=== PATIENT | female | born 1995 | race Caucasian/White ===

== ENCOUNTER → 2023-12-01 08:25 | Outpatient (BNVA) | payer MEDICAID, SELFPAY | PROVIDERS: Family Provider Family Medicine; PCP Family Medicine; Visit Provider Nurse Practitioner Women's Health | DX: N92.6 Irregular menstruation, unspecified (principal); Z34.90 Encounter for supervision of normal pregnancy, unspecified, unspecified trimester | CPT/HCPCS: 81025; 84702 ==

== ENCOUNTER → 2023-12-15 13:08 | Outpatient (BNVA) | payer MEDICAID, SELFPAY | PROVIDERS: Visit Provider Nurse Practitioner Women's Health | DX: Z36.87 Encounter for antenatal screening for uncertain dates (principal) | CPT/HCPCS: 76801 ==

== ENCOUNTER → 2024-01-05 07:43 | Outpatient (BNVA) | payer MEDICAID, SELFPAY | PROVIDERS: Visit Provider Nurse Practitioner Women's Health | DX: Z34.90 Encounter for supervision of normal pregnancy, unspecified, unspecified trimester (principal) | CPT/HCPCS: 80307; 84315; 84443; 85025; 86592; 86762; 86803; 86850; 86900; 87086; 87340; 87491; 87591; 87806 ==

== ENCOUNTER 2024-02-03 18:11 | Outpatient (CLI) | payer MEDICAID, SELFPAY ==
[2024-02-03 18:23] LABS: Total Volume, Urine 1300 mL
[2024-02-03 18:47] LABS: Urine Total Protein 7.1 mg/dL (0-150); Urine Total Protein 24 Hour 92.3 mg/24hr (0-150)
== END 2024-02-03 18:12 | disposition home or self-care (01) ==
PROVIDERS: Visit Provider Obstetrics & Gynecology
DX: O16.9 Unspecified maternal hypertension, unspecified trimester (principal)
CPT/HCPCS: 84156

== ENCOUNTER → 2024-02-09 08:10 | Outpatient (BNVA) | payer BC, MEDICAID, SELFPAY | PROVIDERS: Visit Provider Nurse Practitioner Women's Health | DX: Z34.90 Encounter for supervision of normal pregnancy, unspecified, unspecified trimester (principal); Z01.419 Encounter for gynecological examination (general) (routine) without abnormal findings | CPT/HCPCS: 84315; 87624 ==

== ENCOUNTER 2024-02-29 23:07 | Emergency (ER) | payer BC, MEDICAID, SELFPAY ==
[2024-02-29 23:10] VITALS: BP 124/84; PULSE 80; RESP 15; TEMP 36.8; O2SAT 98; BMI 34.0
[2024-02-29 23:20] VITALS: BP 124/84; PULSE 70; O2SAT 98
--- NOTE | 2024-02-29 23:25 | USR_ITS ---
PROCEDURE INFORMATION: Exam: US , Limited Exam date and time: 02/29/2024 11:54 PM Age: 29 years old Clinical indication: complicated by abdominal or pelvic pain; Generalized abdominal pain; Second trimester (14 weeks 0 days to 27 weeks 6 days); Gestational age or lmp: 18w 5d; ; Prior surgery; Surgery date: 6+ months; Surgery type: Csect x 2; Patient HX: Bilateral pelvic pain x 4 hours, no vaginal bleeding. ; Additional info: Pain, LABS AND CLINICAL REPORTS: Last menstrual period start date: 10/19/2023 Gestational age (Established): 18 w 6 d Estimated due date (Established): 07/26/2024 TECHNIQUE: Imaging protocol: Real-time ultrasound of the maternal uterus with image documentation. Exam focused on the clinical indication. COMPARISON: US OB <= 14 weeks fetus [id number] 12/15/2023 1:13 PM FINDINGS: Gestation: Single intrauterine gestation heart rate: 144 bpm presentation and position: Cephalic Placenta: Posterior grade 0 placenta without previa. Amniotic fluid (Qualitative): Amniotic fluid volume is normal. Amniotic fluid index: JOSH is 13.31 cm. ANATOMY: midline falx: midline falx is normal. cerebellum: cerebellum is normal. lateral ventricles: lateral ventricles are normal. cisterna magna: cisterna magna is normal. choroid plexus: choroid plexus is normal. face: upper lip and nose are normal. situs: situs is normal. heart four-chamber view, heart size and position: heart four-chamber view, size, and position are normal. kidneys: kidneys are normal. stomach: stomach is normal. urinary bladder: bladder is normal. spine: No visualized abnormalities of spine. Umbilical cord and insertion: umbilical cord insertion site into the abdomen is normal. 3-vessel umbilical cord lower limbs: legs and feet: No visualized abnormalities of legs/feet. upper limbs: arms and hands: No visualized abnormalities of arms/hands. BIOMETRY: Gestational age (AUA): 18 w 5 d Estimated due date (AUA): 07/27/2024 Estimated weight: 249.21 g. EFW by AC, BPD, FL, HC, [place] 1985 Biparietal diameter (BPD): 4.14 cm. EGA (BPD) is 18 w 4 d. 36.6 % percentile Head circumference (HC): 15.96 cm. EGA (HC) is 18 w 6 d. 39.4 % percentile Abdominal circumference (AC): 12.68 cm. EGA (AC) is 18 w 2 d. 26.7 % percentile Femur length (FL): 2.92 cm. EGA (FL) is 19 w 0 d. 48.3 % percentile HC/AC: 1.26. (Normal range: 1.09 - 1.26) FL/HC: 18.3. (Normal range: 16.01 - 18.21) FL/BPD: 70.53 FL/AC: 23.03 MATERNAL: Cervix: Cervical length measures 3.8 cm. US/US OB >= 14 weeks fetus [id number] IMPRESSION: Single intrauterine with documented heart rate.
--- NOTE | 2024-02-29 23:29 | W.ED.GENADLT ---
HPI - General Adult General: Chief complaint: General Medical Stated complaint: HTN Time Seen by Provider: 02/29/24 23:15 History of Present Illness: 29-year-old female who is approximately 19 weeks who presents the emergency room with reports of hypertension and abdominal pain. EMS reported her blood pressure was 135/103. They gave some labetalol here. She is already on nifedipine. She had reported some headache earlier that is not as bad now. She also reports some low intermittent crampy pelvic pain that radiates up both sides. No vaginal bleeding. No vaginal discharge. No altered mental status. No focal motor deficits. No chest pain. No shortness of breath. Review of Systems Narrative: Constitutional symptoms: Negative except as documented in HPI. Skin symptoms: Negative except as documented in HPI. Eye symptoms: Negative except as documented in HPI. ENMT symptoms: Negative except as documented in HPI. Respiratory symptoms: Negative except as documented in HPI. Cardiovascular symptoms: Negative except as documented in HPI. Gastrointestinal symptoms: Negative except as documented in HPI. Genitourinary symptoms: Negative except as documented in HPI. Musculoskeletal symptoms: Negative except as documented in HPI. Neurologic symptoms: Negative except as documented in HPI. Psychiatric symptoms: Negative except as documented in HPI. Endocrine symptoms: Negative except as documented in HPI. [facility] ED PFSH: Medical History (Updated 03/01/24 @ 01:09 by Staci Oquendo MD) History of gestational hypertension Surgical History (Updated 02/12/24 @ 15:10 by Gene Leija MD) History of x2 Family History Mother Heart disease Hypertension Denies family history of Colon cancer Ovarian cancer Prostate cancer Diabetes Hypercholesteremia Breast cancer Uterine cancer Thyroid disease Stroke Physical Exam Narrative: EXAM NARRATIVE: General: Alert, no acute distress. Skin: Warm, dry. Head: Normocephalic, atraumatic. Neck: Supple, trachea midline. Eye: Extraocular movements are intact. Ears, nose, mouth and throat: mucosa moist. Cardiovascular: Regular, Normal peripheral perfusion. Respiratory: Lungs are clear to auscultation, respirations are non-labored, breath sounds are equal, Symmetrical chest wall expansion. Gastrointestinal: Gravid, no focal tenderness, soft Musculoskeletal: Normal ROM, no deformity. Neurological: Alert and oriented, No focal neurological deficit observed. Psychiatric: Cooperative, appropriate mood & affect. Course Vital Signs: Vital signs: Vital Signs Temperature 98.2 F 02/29/24 23:10 Pulse Rate 68 03/01/24 00:38 Respiratory Rate 15 02/29/24 23:10 Blood Pressure 138/73 03/01/24 00:38 Pulse Oximetry 99 03/01/24 00:38 Oxygen Delivery Me thod Room Air 03/01/24 00:38 MDM - General Adult Medical Decision Making Medical decision making: Differential diagnosis including but not limited to and based on the above HPI, review of systems and physical exam: In this patient with weakness, headache, abdominal pain basic lab work was ordered a urine because she has some pelvic pain. Also an ultrasound secondary to pelvic pain. Rule out any abnormalities with the . Orders placed to evaluate differential diagnosis based on the above differential, HPI and physical exam Lab Review: Laboratory results were reviewed and interpreted by myself the emergency room physician. Lab work was fairly unremarkable for a patient. Some leukocytosis with a white count of 11. This is expected. Bicarb is 20 which is also expected in . Urine had some ketones which indicate that she is dehydrated somewhat. Also had to plus bacteria and some white so I am going to treat her for urinary tract infection Obstetric ultrasound: Normal ultrasound. Normal-appearing fetus. Vigorous movement. Heart rate was 144. Approximately 18 weeks 6 days. This was reviewed and interpreted by myself the emergency room physician. I also reviewed the radiology report. I reviewed the patient's medical record. Reexamination: Patient remained stable. No increased work of breathing. No altered mental status. Assessment and plan: UTI Dehydration -Fluids, Rocephin and Tylenol - Discharged home - Discussed findings and plan with patient. Answered any questions. - All laboratory values were reviewed and interpreted personally by myself, the ER physician - All imaging was reviewed and interpreted personally by myself, the ER physician. - Evaluation and treatment of this problem were appropriate in the emergency setting Lab Data 02/29/24 23:44 02/29/24 23:44 Laboratory Results WBC 11.32 10^3/uL (3.29-11.43) 02/29/24 23:44 RBC 4.30 10^6/uL (3.85-5.65) 02/29/24 23:44 Hgb 13.10 g/dL (11.27-16.99) 02/29/24 23:44 Hct 37.3 % (36-47) 02/29/24 23:44 MCV 86.7 fl (85-98) 02/29/24 23:44 MCH 30.5 pg (27-33) 02/29/24 23:44 MCHC 35.1 g/dL (30-55) 02/29/24 23:44 RDW 13.1 % (12.1-15.1) 02/29/24 23:44 Plt Count 205 10^3/cmm (157-399) 02/29/24 23:44 MPV 11.1 fL (7.4-10.4) H 02/29/24 23:44 Neut % (Auto) 71.9 % 02/29/24 23:44 Lymph % (Auto) 21.9 % 02/29/24 23:44 [place] % (Auto) 4.7 % 02/29/24 23:44 Eos % (Auto) 0.8 % 02/29/24 23:44 Baso % (Auto) 0.3 % 02/29/24 23:44 Neut # (Auto) 8.14 10^3/uL (1.8-7.7) H 02/29/24 23:44 Lymph # (Auto) 2.5 10^3/uL (0.8-4.8) 02/29/24 23:44 [place] # (Auto) 0.5 10^3/uL (0.2-0.9) 02/29/24 23:44 Eos # (Auto) 0.1 10^3/uL (0.0-0.8) 02/29/24 23:44 Baso # (Auto) 0.0 10^3/uL (0.0-0.1) 02/29/24 23:44 Nucleated RBC % (auto) 0 % 02/29/24 23:44 Nucleated RBCs # 0.0 /100WBC 02/29/24 23:44 Sodium 138 mmol/L (136-145) 02/29/24 23:44 Potassium 3.3 mmol/L (3.5-5.1) L 02/29/24 23:44 Chloride 105 mmol/L (98-107) 02/29/24 23:44 Carbon Dioxide 20 mmol/L (22-29) L 02/29/24 23:44 Anion Gap 16.3 (5-19) 02/29/24 23:44 BUN 8 mg/dL (6-20) 02/29/24 23:44 Creatinine 0.5 mg/dL (0.5-0.9) 02/29/24 23:44 GFR Calculation 146.9 mL/min (90-130) H 02/29/24 23:44 Glucose 89 mg/dL (65-115) 02/29/24 23:44 Calculated Osmolality 284 mOsm/kg (285-295) L 02/29/24 23:44 Lactic Acid 1.1 mmol/L (0.5-2.2) 02/29/24 23:44 Calcium 9.3 mg/dL (8.5-10.5) 02/29/24 23:44 Total Bilirubin 0.8 mg/dL (0.15-1.2) 02/29/24 23:44 AST 17 U/L (0-32) 02/29/24 23:44 ALT 23 U/L (0-33) 02/29/24 23:44 Alkaline Phosphatase 74 U/L (35-105) 02/29/24 23:44 C-Reactive Protein 21.9 mg/L (0.0-4.9) H 02/29/24 23:44 Total Protein 7.4 g/dL (6.6-8.7) 02/29/24 23:44 Albumin 3.9 g/dL (3.5-5.2) 02/29/24 23:44 Globulin 3.5 g/dL (1.3-4.6) 02/29/24 23:44 Urine Color Yellow (Yellow) 02/29/24 23:37 Urine Appearance Clear (CLEAR) 02/29/24 23:37 Urine pH 5 (5-7) 02/29/24 23:37 Ur Specific [place] 1.025 (1.005-1.030) 02/29/24 23:37 Urine Protein Trace (Negative) 02/29/24 23:37 Urine Glucose (UA) Norm (Normal) 02/29/24 23:37 Urine Ketones 3+ (Negative) H 02/29/24 23:37 Urine Blood Neg (Negative) 02/29/24 23:37 Urine Nitrate Negative (Negative) 02/29/24 23:37 Urine Bilirubin 1+ (Negative) H 02/29/24 23:37 Urine Urobilinogen 4+ mg/dL (Negative) H 02/29/24 23:37 Ur Leukocyte Esterase Negative (Negative) 02/29/24 23:37 Urine RBC 0-4 /hpf (0-2) H 02/29/24 23:37 Urine WBC 0-4 /hpf (0-5) H 02/29/24 23:37 Ur Squamous Epith Cells 0-4 /hpf (0-5) H 02/29/24 23:37 Amorphous Sediment Not Reportable 02/29/24 23:37 Urine Bacteria 2+ /hpf (NONE) H 02/29/24 23:37 Urine Mucus Trace /hpf 02/29/24 23:37 All radiology interpretation(s) finalized by discharge Discharge Plan Discharge Patient Disposition: Home Clinical Impression: Urinary tract infection, Dehydration Qualifiers: Weeks of gestation: 11 weeks Qualified Code(s): Z3A.11 - 11 weeks gestation of Condition: Stable Prescriptions: New cefdinir 300 mg capsule 300 mg PO BID 5 Days Qty: 10 0RF No Action prenat.vits,saige,hnf-ozgn-pdvpn Tablet PO nifedipine [Procardia XL] 30 mg tablet extended release 24hr 30 mg PO DAILY Qty: 30 1RF Discharge Orders: Discharge ED (Routine); Ordered 03/01/24 Ordered By: Staci Oquendo Discharge Diet: Usual diet Discharge Activity: Increase activity as tolerated Patient Instructions: Urinary Tract Infection in (ED) Activity Restrictions/Additional Instructions: Thank you for choosing [facility] for your healthcare needs today. Please realize this is an emergency room and that we are providing you with a medical screening exam and this may not be complete and all inclusive of all the testing and or work up that you may need to determine your ailment or severity of your illness. You have been screened and evaluated and felt safe for discharge. Health conditions do change or evolve sometimes and as such it is important that you follow up with your Primary Doctor to be re checked, 3-5 days is a general good time frame for follow up. You are always welcome to return to the ED for re assessment if your symptoms are worsening or you have new concerns Coding Level of Care Code ED Weight Analyst for Erin Farmer
[2024-02-29 23:49] VITALS: BP 116/73
[2024-02-29] MEDS: sodium chloride 0.9% 1,000 ML 999 ML IV (23:53)
[2024-02-29 23:57] LABS: Basophils % 0.3 %; Eosinophils # 0.1 10^3/uL (0.0-0.8); Eosinophils % 0.8 %; Hematocrit 37.3 % (36-47); Lymphocytes # 2.5 10^3/uL (0.8-4.8); Lymphocytes % 21.9 %; Mean Corpuscular HGB Conc 35.1 g/dL (30-55); Mean Corpuscular Hemoglobin 30.5 pg (27-33); Mean Corpuscular Volume 86.7 fl (85-98); Mean Platelet Volume 11.1 fL (7.4-10.4); Monocytes # 0.5 10^3/uL (0.2-0.9); Monocytes % 4.7 %; Neutrophils # 8.14 10^3/uL (1.8-7.7); Neutrophils % 71.9 %; Nucleated Red Blood Cells % 0 %; Platelet Count 205 10^3/cmm (157-399); Red Cell Distribution Width 13.1 % (12.1-15.1); White Blood Count 11.32 10^3/uL (3.29-11.43)
[2024-03-01 00:01] LABS: Urine Appearance Clear (CLEAR); Urine Color Yellow (Yellow)
[2024-03-01 00:02] LABS: Bacteria Urine 2+ /hpf; Bilirubin Urine 1+ (Negative); Blood Urine Neg (Negative); Glucose Urine UA Norm (Normal); Ketones Urine 3+ (Negative); Leukocyte Esterase Urine Negative (Negative); Mucus Urine TRACE /hpf; Nitrate Urine Negative (Negative); Protein Urine Trace (Negative); RBC Urine 0-4 /hpf (0-2); Specific Gravity, Urine 1.025 (1.005-1.030); Squamous Epithelial Cell Urine 0-4 /hpf (0-5); Urobilinogen Urine 4+ mg/dL (Negative); WBC Urine 0-4 /hpf (0-5); pH Urine 5 (5-7)
[2024-03-01 00:03] LABS: Add Urine Culture? No
[2024-03-01 00:09] VITALS: BP 139/74; PULSE 78; O2SAT 98
[2024-03-01 00:17] LABS: Alanine Aminotransferase 23 U/L (0-33); Albumin Level 3.9 g/dL (3.5-5.2); Alkaline Phosphatase 74 U/L (35-105); Anion Gap 16.3 (5-19); Aspartate Amino Transferase 17 U/L (0-32); Blood Urea Nitrogen 8 mg/dL (6-20); C Reactive Protein 21.9 mg/L (0.0-4.9); Calcium 9.3 mg/dL (8.5-10.5); Carbon Dioxide 20 mmol/L (22-29); Chloride 105 mmol/L (98-107); Globulin 3.5 g/dL (1.3-4.6); Glomerular Filtration Rate 146.9 mL/min (90-130); Glucose 89 mg/dL (65-115); Osmolality Calculated 284 mOsm/kg (285-295); Potassium 3.3 mmol/L (3.5-5.1); Sodium 138 mmol/L (136-145); Total Bilirubin 0.8 mg/dL (0.15-1.2); Total Protein 7.4 g/dL (6.6-8.7)
[2024-03-01 00:18] LABS: Lactic Sepsis W/Reflex 1.1 mmol/L (0.5-2.2)
[2024-03-01 00:38] VITALS: BP 138/73; PULSE 68; O2SAT 99
[2024-03-01] MEDS: cefTRIAXone 1,000 mg SDV 1000 MG IVP (00:48)
[2024-03-01] MEDS: acetaminophen 500 mg Tablet 1000 MG PO (01:16)
[2024-03-01 01:19] VITALS: BP 130/74; PULSE 77; O2SAT 99
== END 2024-03-01 02:07 | disposition home or self-care (01) ==
PROVIDERS: Emergency Provider Emergency Medicine
DX: O23.41 Unspecified infection of urinary tract in pregnancy, first trimester (principal); O26.891 Other specified pregnancy related conditions, first trimester; E86.0 Dehydration; Z3A.11 11 weeks gestation of pregnancy
CPT/HCPCS: 36415; 76805; 80053; 81001; 83605; 85025; 86140; 87040; 96361; 96374; 99285; J0696; J7030

== ENCOUNTER → 2024-03-12 14:25 | Outpatient (BNVA) | payer BC, MEDICAID, SELFPAY | PROVIDERS: Visit Provider Obstetrics & Gynecology | DX: Z34.92 Encounter for supervision of normal pregnancy, unspecified, second trimester (principal) | CPT/HCPCS: 76805 ==

== ENCOUNTER 2024-04-04 11:52 | Outpatient (CLI) | payer BC, MEDICAID, SELFPAY ==
--- NOTE | 2024-04-04 11:53 | PC.NURSE ---
Patient sent by [facility]ER at [facility] for blood pressure monitor. Patient educated on how to take blood pressure, demonstrated understanding. Patient provided with blood pressure log and educated on when to come in to triage for severe blood pressures.
== END 2024-04-04 11:54 | disposition home or self-care (01) ==
LOC: OPOB 11:52
PROVIDERS: Visit Provider Obstetrics & Gynecology
DX: O26.899 Other specified pregnancy related conditions, unspecified trimester (principal); Z3A.00 Weeks of gestation of pregnancy not specified
CPT/HCPCS: 84315

== ENCOUNTER 2024-05-07 09:16 | Emergency (ER) | payer BC, MEDICAID, SELFPAY ==
[2024-05-07 09:29] VITALS: BP 151/89; PULSE 102; TEMP 36.6; O2SAT 95; BMI 37.5
--- NOTE | 2024-05-07 09:36 | XR_ITS ---
WS: [id number] PORTABLE CHEST HISTORY: sob; shield/preg COMPARISON: None available. Decreased lung volumes. Very mild interstitial thickening may be related to edema or the decreased in spiration due to . No pleural effusion or pneumothorax. Cardiac size: Normal. Mediastinum/Aorta: Normal mediastinum. Prior healed fracture mid LEFT clavicle. XR/XR chest 1V portable [id number] IMPRESSION: No acute cardiopulmonary disease identified. Mild interstitial prominence is pr obably due to poor inspiration which may be related to the gravid uterus.
--- NOTE | 2024-05-07 09:37 | ECG_ITS ---
[facility] Test Date: 2024-05-07 Pat Name: Dayanna Donohue Department: Room: Gender: Female [employer]: : 1995 Requested By: Valentina Palacios Order Number: [id number] Rubina MD: Andrea Jackson M.D. Measurements Intervals [place] Rate: 101 P: 48 SC: 151 QRS: 35 QRSD: 86 T: -7 QT: 357 QTc: 464 Interpretive Statements SINUS TACHYCARDIA NONSPECIFIC T-WAVE ABNORMALITY No previous ECG available for comparison Electronically Signed On 05-07-2024 16:09:33 CDT by Andrea Jackson M.D. [email or web address]
[2024-05-07 10:51] LABS: Basophils # 0.1 10^3/uL (0.0-0.1); Basophils % 0.3 %; Eosinophils # 0.6 10^3/uL (0.0-0.8); Eosinophils % 3.5 %; Hematocrit 34.6 % (36-47); Lymphocytes # 2.1 10^3/uL (0.8-4.8); Lymphocytes % 12.7 %; Mean Corpuscular Hemoglobin 31.6 pg (27-33); Mean Corpuscular Volume 90.3 fl (85-98); Mean Platelet Volume 11.3 fL (7.4-10.4); Monocytes # 0.7 10^3/uL (0.2-0.9); Monocytes % 4.5 %; Neutrophils # 12.86 10^3/uL (1.8-7.7); Neutrophils % 78.4 %; Nucleated Red Blood Cells % 0 %; Platelet Count 218 10^3/cmm (157-399); Red Blood Count 3.83 10^6/uL (3.85-5.65); Red Cell Distribution Width 13.4 % (12.1-15.1); White Blood Count 16.41 10^3/uL (3.29-11.43)
--- NOTE | 2024-05-07 10:55 | ED_ITS ---
HPI - SOB/Dyspnea 2 General: Chief Complaint: Shortness of Breath/Dyspnea Stated Complaint: SOb/CP Time Seen by Provider: 05/07/24 10:55 Source: patient Mode of arrival: ambulatory Limitations: no limitations History of Present Illness: HPI Narrative: Patient is a 29-year-old female who presents to ED today with a complaint of a cough and chest congestion over the past 4 days or so. Patient states she was seen on and diagnosed with bronchitis. She was placed on azithromycin and albuterol inhaler. She states she finished the antibiotics today. At that time, she was also having sinus pain/pressure and nasal congestion. She states this has improved but it has now all moved down into my chest . She is approximately 28 weeks . States she is considered high risk given her previous preeclampsia during her last . MD elicited complaint: shortness of breath and cough Onset (ago): day(s) Context: recent illness Timing: constant Severity: moderate Relieving factors: nothing Associated symptoms: Reports chest congestion, chest pain (burning when coughing; states feels like razor blades) and fever(s) (subjective/states they have been low grade ); Deny abdominal pain, dizziness, extremity pain, hemoptysis, lightheadedness, nausea, orthopnea, palpitations, syncope or vomiting Treatment prior to arrival: bronchodilator and other (abx) Related Data Home Medications Medication Instructions Recorded Confirmed prenat.vits,saige,gap-ryny-mlmgf tab PO 12/01/23 05/03/24 Previous Rx's Medication Instructions Recorded nifedipine 30 mg tablet,extended 30 mg PO DAILY #30 tabs 02/01/24 release 24 hr (Procardia XL) egyfbwkhrb-gkkhowhncultm-uouiuopm 1 cap PO Q8H PRN pain #30 caps 03/21/24 50 mg-300 mg-40 mg capsule (Fioricet) albuterol sulfate 90 mcg/actuation 2 puff inhalation QID PRN 05/03/24 aerosol inhaler shortness of breath or wheezing #6.7 grams azithromycin 250 mg tablet See Rx Instructions PO .COMPLEX #6 05/03/24 tabs erythromycin 5 mg/gram (0.5 %) eye 0.5 inch ophthalmic (eye) TID #3.5 05/03/24 ointment (3.5 gram tube) grams Allergies Allergy/AdvReac Type Severity Reaction Status Date / Time Penicillins Allergy oth Verified 05/07/24 09:35 Review of Systems 2 Const: Reports: fever(s) (subjective/states they have been low grade ); Denies: chills, body aches, fatigue or malaise ENMT: Denies: throat pain, odynophagia, ear or mastoid pain, nasal discharge, nasal congestion or sinus pain Card: Reports: chest pain (burning when coughing; states feels like razor blades) and dyspnea on exertion; Denies: palpitations, irregular heart rhythm, edema, swelling of feet/ankles, lightheadedness, syncope, pre-syncope, orthopnea, leg pain with exertion or acrocyanosis Resp: Reports: dyspnea, productive cough and chest congestion; Denies: wheezing, stridor or hemoptysis GI: Denies: abdominal pain, nausea, vomiting or diarrhea Musc: Denies: extremity pain, extremity swelling, joint pain or joint swelling Skin/Breast: Denies: rash Neuro: Denies: headache(s), numbness in extremities, weakness in extremities, sensory changes, difficulty walking or dizziness PFSH ED 2 PFSH: Medical History History of gestational hypertension Surgical History History of x2 Family History Mother Heart disease Hypertension Denies family history of Colon cancer Ovarian cancer Prostate cancer Diabetes Hypercholesteremia Breast cancer Uterine cancer Thyroid disease Stroke Social History Smoking and tobacco/nicotine status: former use of tobacco/nicotine Physical Exam 2 Const: COMMON NORMALS: no acute distress, patient oriented x3, no limitations, alert and well nourished GENERAL APPEARANCE: cooperative O RIENTATION/CONSCIOUSNESS: Yes awake, Yes oriented to person, Yes oriented to place and Yes oriented to time HENMT: COMMON NORMALS: normocephalic, atraumatic, EAC's normal, TM's normal bilaterally, Normal external nose present, Normal nasal mucous membranes and turbinates present, moist oral mucous membranes and oropharynx normal HEAD & SCALP: normal to inspection, normocephalic and atraumatic FACE & SINUS: n ormal facial exam and sinuses nontender NOSE: Normal external nose present and Normal nasal mucous membranes and turbinates present EXTERNAL AUDITORY CANAL: EAC's normal TYMPANIC MEMBRANE: TM's normal bilaterally MOUTH: N ormal oral and palatal mucosa present THROAT: posterior oropharynx normal and tonsils normal Eye: GENERAL EYE: appearance normal, both eyes and all related structures Neck/C-Spine: COMMON NORMALS: no lymphadenopathy GENERAL: Yes normal visual inspection Chest: COMMONS NORMALS: normal inspection of the chest and normal palpation of entire chest wall Resp: COMMON NORMALS: normal respiratory effort and clear to auscultation bilaterally AUSCULTATION: clear to auscultation bilaterally OTHER: occasional course sounding cough Cardio: COMMON NORMALS: regular rate and regular rhythm RATE: regular rate RHYTHM: regular rhythm GI: INSPECTION: Yes gravid abdomen : COMMON NORMALS: Yes no CVA tenderness BLADDER/KIDNEY EXAM: Yes no CVA tenderness Back/Pelvis: COMMON NORMALS: no CVA tenderness Extremity: COMMON NORMALS: no clubbing, cyanosis or edema, no calf tenderness and no pedal edema Neuro: COMMON NORMALS: patient oriented x3, moves all extremities, no focal motor deficits and no sensory deficits noted SENSORIUM/ORIENTATION: Yes alert, Yes oriented to person, Yes oriented to place and Yes oriented to time Skin: COMMON NORMALS: no rashes or lesions noted GENERAL SKIN EXAM: no rashes or lesions noted Course 2 Vital Signs: Vital signs: Vital Signs Temperature 97.8 F 05/07/24 09:29 Pulse Rate 102 H 05/07/24 09:29 Blood Pressure 108/74 05/07/24 11:35 Pulse Oximetry 96 05/07/24 11:35 Oxygen Delivery Me thod Room Air 05/07/24 09:29 MDM - SOB/Dyspnea Medical Decision Making Patient for cough and chest congestion over the past several days. Symptoms most likely viral in etiology. She is already finished a round of azithromycin. I do not see any indication for additional antibiotic therapy at this time. Blood work is unremarkable vital signs are stable. UA is contaminated. She is not having any UTI-like symptoms. No evidence for preeclampsia. Her CXR showing no acute cardiopulmonary disease. She is cleared from the emergency department with return precautions. Otherwise she can follow-up with her OB provider as scheduled next week. Medical Records I reviewed the patient's medical records. Lab Data I reviewed the patient's lab results. 05/07/24 10:34 05/07/24 10:34 Labs/Radiology: Radiology Impressions Chest X-Ray 05/07/24 09:36 IMPRESSION: No acute cardiopulmonary disease identified. Mild interstitial prominence is probably due to poor inspiration which may be related to the gravid uterus. Laboratory Results WBC 16.41 10^3/uL (3.29-11.43) H 05/07/24 10:34 RBC 3.83 10^6/uL (3.85-5.65) L 05/07/24 10:34 Hgb 12.10 g/dL (11.27-16.99) 05/07/24 10:34 Hct 34.6 % (36-47) L 05/07/24 10:34 MCV 90.3 fl (85-98) 05/07/24 10:34 MCH 31.6 pg (27-33) 05/07/24 10:34 MCHC 35.0 g/dL (30-55) 05/07/24 10:34 RDW 13.4 % (12.1-15.1) 05/07/24 10:34 Plt Count 218 10^3/cmm (157-399) 05/07/24 10:34 MPV 11.3 fL (7.4-10.4) H 05/07/24 10:34 Neut % (Auto) 78.4 % 05/07/24 10:34 Lymph % (Auto) 12.7 % 05/07/24 10:34 [place] % (Auto) 4.5 % 05/07/24 10:34 Eos % (Auto) 3.5 % 05/07/24 10:34 Baso % (Auto) 0.3 % 05/07/24 10:34 Neut # (Auto) 12.86 10^3/uL (1.8-7.7) H 05/07/24 10:34 Lymph # (Auto) 2.1 10^3/uL (0.8-4.8) 05/07/24 10:34 [place] # (Auto) 0.7 10^3/uL (0.2-0.9) 05/07/24 10:34 Eos # (Auto) 0.6 10^3/uL (0.0-0.8) 05/07/24 10:34 Baso # (Auto) 0.1 10^3/uL (0.0-0.1) 05/07/24 10:34 Nucleated RBC % (auto) 0 % 05/07/24 10:34 Nucleated RBCs # 0.0 /100WBC 05/07/24 10:34 Sodium 135 mmol/L (136-145) L 05/07/24 10:34 Potassium 3.7 mmol/L (3.5-5.1) 05/07/24 10:34 Chloride 105 mmol/L (98-107) 05/07/24 10:34 Carbon Dioxide 17 mmol/L (22-29) L 05/07/24 10:34 Anion Gap 16.7 (5-19) 05/07/24 10:34 BUN 7 mg/dL (6-20) 05/07/24 10:34 Creatinine 0.4 mg/dL (0.5-0.9) L 05/07/24 10:34 GFR Calculation 190.1 mL/min (90-130) H 05/07/24 10:34 Glucose 84 mg/dL (65-115) 05/07/24 10:34 Calculated Osmolality 277 mOsm/kg (285-295) L 05/07/24 10:34 Calcium 8.8 mg/dL (8.5-10.5) 05/07/24 10:34 Total Bilirubin 0.4 mg/dL (0.15-1.2) 05/07/24 10:34 AST 13 U/L (0-32) 05/07/24 10:34 ALT 10 U/L (0-33) 05/07/24 10:34 Alkaline Phosphatase 95 U/L (35-105) 05/07/24 10:34 Total Protein 6.9 g/dL (6.6-8.7) 05/07/24 10:34 Albumin 3.3 g/dL (3.5-5.2) L 05/07/24 10:34 Globulin 3.6 g/dL (1.3-4.6) 05/07/24 10:34 Procalcitonin 0.13 ng/mL (0-0.5) 05/07/24 10:34 Urine Color Yellow (Yellow) 05/07/24 11:46 Urine Appearance Cloudy (CLEAR) A 05/07/24 11:46 Urine pH 5 (5-7) 05/07/24 11:46 Ur Specific [place] 1.030 (1.005-1.030) 05/07/24 11:46 Urine Protein 1+ (Negative) H 05/07/24 11:46 Urine Glucose (UA) Norm (Normal) 05/07/24 11:46 Urine Ketones Negative (Negative) 05/07/24 11:46 Urine Blood Neg (Negative) 05/07/24 11:46 Urine Nitrate Negative (Negative) 05/07/24 11:46 Urine Bilirubin 1+ (Negative) H 05/07/24 11:46 Urine Urobilinogen 4 mg/dL (Negative) H 05/07/24 11:46 Ur Leukocyte Esterase 2+ (Negative) H 05/07/24 11:46 Urine RBC 0-4 /hpf (0-2) H 05/07/24 11:46 Urine WBC 10-15 /hpf (0-5) H 05/07/24 11:46 Ur Squamous Epith Cells 10-15 /hpf (0-5) H 05/07/24 11:46 Calcium Oxalate Crystal 5-10 /hpf H 05/07/24 11:46 Amorphous Sediment 1+ /hpf 05/07/24 11:46 Urine Bacteria 2+ /hpf (NONE) H 05/07/24 11:46 Urine Mucus Trace /hpf 05/07/24 11:46 U Random Total Protein 34 mg/dL 05/07/24 11:46 Urine Creatinine 247 mg/dL (28-217) H 05/07/24 11:46 Protein/Creatinin Ratio 0.14 mg/mg CR 05/07/24 11:46 All radiology interpretation(s) finalized by discharge Discharge Plan Discharge Patient Disposition: Home Clinical Impression: Acute viral bronchitis Condition: Stable Prescriptions: No Action hraiyeleub-inojjqjhvzkrb-kayn [Fioricet] 50-300-40 mg capsule 1 cap PO Q8H PRN (Reason: pain) Qty: 30 0RF albuterol sulfate 90 mcg/actuation HFA aerosol inhaler 2 puff inhalation QID PRN (Reason: shortness of breath or wheezing) Qty: 6.7 5RF azithromycin 250 mg tablet See Rx Instructions PO .COMPLEX Qty: 6 0RF Rx Instructions: For 250 mg dose pack: take 500 mg today (day 1), then 250 mg for 4 days (days 2-5) PO erythromycin 5 mg/gram (0.5 %) ointment 0.5 inch ophthalmic (eye) TID Qty: 3.5 0RF prenat.vits,saige,ggy-hiuo-ispyn Tablet PO nifedipine [Procardia XL] 30 mg tablet extended release 24hr 30 mg PO DAILY Qty: 30 1RF Discharge Orders: Discharge ED (Routine); Ordered 05/07/24 Ordered By: Valentina Palacios Referrals: Nathalia Long FNP-C [Primary Care Provider] - Patient Instructions: Acute Bronchitis (ED) Activity Restrictions/Additional Instructions: Dextromethorphan and Guaifenesin at standard over the counter doses is generally considered acceptable/safe in . Some sources recommend use be reserved for significant maternal need. Some products may contain alcohol-avoid these in . Coding Level of Care Code ED Appeals Representative for Erin Farmer
[2024-05-07 11:27] LABS: Procalcitonin 0.13 ng/mL (0-0.5)
[2024-05-07 11:35] VITALS: BP 108/74; O2SAT 96
[2024-05-07 11:38] LABS: Alanine Aminotransferase 10 U/L (0-33); Albumin Level 3.3 g/dL (3.5-5.2); Alkaline Phosphatase 95 U/L (35-105); Anion Gap 16.7 (5-19); Aspartate Amino Transferase 13 U/L (0-32); Blood Urea Nitrogen 7 mg/dL (6-20); Calcium 8.8 mg/dL (8.5-10.5); Carbon Dioxide 17 mmol/L (22-29); Chloride 105 mmol/L (98-107); Creatinine Clr Calc Pharmacy 214.1537; Globulin 3.6 g/dL (1.3-4.6); Glomerular Filtration Rate 190.1 mL/min (90-130); Glucose 84 mg/dL (65-115); Osmolality Calculated 277 mOsm/kg (285-295); Potassium 3.7 mmol/L (3.5-5.1); Sodium 135 mmol/L (136-145); Total Bilirubin 0.4 mg/dL (0.15-1.2); Total Protein 6.9 g/dL (6.6-8.7)
[2024-05-07 12:16] LABS: Urine Appearance Cloudy (CLEAR); Urine Color Yellow (Yellow); pH Urine 5 (5-7)
[2024-05-07 12:17] LABS: Add Urine Microscopic? YES; Bilirubin Urine 1+ (Negative); Blood Urine Neg (Negative); Glucose Urine UA Norm (Normal); Ketones Urine Negative (Negative); Leukocyte Esterase Urine 2+ (Negative); Nitrate Urine Negative (Negative); Protein Urine 1+ (Negative); Urobilinogen Urine 4 mg/dL (Negative)
[2024-05-07 12:20] LABS: Add Urine Culture? Yes; Amorphous Sediment Urine 1+ /hpf; Bacteria Urine 2+ /hpf; Mucus Urine TRACE /hpf; RBC Urine 0-4 /hpf (0-2)
[2024-05-07 12:30] LABS: Urine Creatinine 247 mg/dL (28-217)
[2024-05-07 12:31] LABS: UPRO/UCREAT Ratio 0.14 mg/mg CR; Urine Protein Random 34 mg/dL
[2024-05-07 12:51] VITALS: BP 140/87; PULSE 84; O2SAT 99
[2024-05-07 13:26] LABS: Adenovirus Not Detected (NOT DETECT); Chlamydia Pneumoniae Not Detected (NOT DETECT); Coronavirus 229E,HKU1,NL63,OC4 Not Detected (NOT DETECT); Human Metapneumovirus Not Detected (NOT DETECT); Human Rhinovirus/Enterovirus Detected (NOT DETECT); Influenza A Not Detected (NOT DETECT); Influenza A H1 Not Detected (NOT DETECT); Influenza A H1-2009 Not Detected (NOT DETECT); Influenza A H3 Not Detected (NOT DETECT); Influenza B Not Detected (NOT DETECT); Mycoplasma Pneumoniae Not Detected (NOT DETECT); Parainfluenza Virus Type 1 Not Detected (NOT DETECT); Parainfluenza Virus Type 2 Not Detected (NOT DETECT); Parainfluenza Virus Type 3 Not Detected (NOT DETECT); Parainfluenza Virus Type 4 Not Detected (NOT DETECT); Respiratory Syncytial Virus A Not Detected (NOT DETECT); Respiratory Syncytial Virus B Not Detected (NOT DETECT); SARS-COV-2 Not Detected (NOT DETECT)
== END 2024-05-07 12:52 | disposition home or self-care (01) ==
PROVIDERS: Emergency Provider Physician Assistant; PCP Nurse Practitioner Family
DX: J20.8 Acute bronchitis due to other specified organisms (principal); Z87.891 Personal history of nicotine dependence
CPT/HCPCS: 36415; 71045; 80053; 81001; 82570; 84145; 84156; 85025; 87086; 87486; 87581; 87633; 93005; 99285

== ENCOUNTER 2024-06-08 08:31 | Outpatient (CLI) | payer BC, MEDICAID, SELFPAY ==
[2024-06-08 08:31] VITALS: RESP 17; BMI 36.5
[2024-06-08 08:37] VITALS: BP 103/68; PULSE 77
[2024-06-08 08:52] VITALS: BP 108/70; PULSE 80
== END 2024-06-08 09:05 | disposition home or self-care (01) ==
LOC: OPOB 08:32 → OBGYN 08:32
PROVIDERS: PCP Nurse Practitioner Family; Visit Provider Obstetrics & Gynecology
DX: O36.5990 Maternal care for other known or suspected poor fetal growth, unspecified trimester, not applicable or unspecified (principal); Z3A.00 Weeks of gestation of pregnancy not specified; O16.9 Unspecified maternal hypertension, unspecified trimester
CPT/HCPCS: 59025; 99211

== ENCOUNTER 2024-06-11 10:30 | Outpatient (CLI) | payer BC, MEDICAID, SELFPAY ==
[2024-06-11 10:44] VITALS: BP 129/78; PULSE 72
[2024-06-11 10:48] VITALS: BMI 37.0
[2024-06-11 10:59] VITALS: BP 138/82; PULSE 63
[2024-06-11 11:18] VITALS: BP 138/82; PULSE 63
== END 2024-06-11 11:19 ==
LOC: OPOB 10:34 → OBGYN 10:34
PROVIDERS: PCP Nurse Practitioner Family; Visit Provider Obstetrics & Gynecology
DX: O36.5990 Maternal care for other known or suspected poor fetal growth, unspecified trimester, not applicable or unspecified (principal); Z3A.00 Weeks of gestation of pregnancy not specified
CPT/HCPCS: 59025

== ENCOUNTER 2024-06-15 08:35 | Outpatient (CLI) | payer BC, MEDICAID, SELFPAY ==
[2024-06-15 08:49] VITALS: BP 129/73; PULSE 80
[2024-06-15 09:04] VITALS: BP 130/73; PULSE 76
== END 2024-06-15 09:13 | disposition home or self-care (01) ==
LOC: OPOB 08:44 → OBGYN 08:45
PROVIDERS: PCP Nurse Practitioner Family; Visit Provider Obstetrics & Gynecology
DX: O36.5990 Maternal care for other known or suspected poor fetal growth, unspecified trimester, not applicable or unspecified (principal); Z3A.00 Weeks of gestation of pregnancy not specified
CPT/HCPCS: 59025

== ENCOUNTER 2024-06-18 08:33 | Outpatient (CLI) | payer BC, MEDICAID, SELFPAY ==
[2024-06-18 08:41] VITALS: TEMP 36.7
[2024-06-18 08:42] VITALS: BP 143/86; PULSE 75
[2024-06-18 08:48] VITALS: RESP 16
[2024-06-18 08:57] VITALS: BP 148/82; PULSE 77
== END 2024-06-18 09:12 ==
LOC: OPOB 08:37 → OBGYN 08:38
PROVIDERS: PCP Nurse Practitioner Family; Visit Provider Obstetrics & Gynecology
DX: O36.5990 Maternal care for other known or suspected poor fetal growth, unspecified trimester, not applicable or unspecified (principal); Z3A.00 Weeks of gestation of pregnancy not specified
CPT/HCPCS: 59025

== ENCOUNTER 2024-06-20 21:35 | Outpatient (CLI) | payer BC, MEDICAID, SELFPAY ==
[2024-06-20] VITALS (9 sets, daily range): BP systolic 123–141; BP diastolic 59–77; PULSE 57–71; TEMP 36.8; BMI 36.2
== END 2024-06-21 00:06 | disposition home or self-care (01) ==
LOC: OPOB 21:45 → OBGYN 21:49
PROVIDERS: PCP Nurse Practitioner Family; Visit Provider Obstetrics & Gynecology
DX: O26.899 Other specified pregnancy related conditions, unspecified trimester (principal); Z3A.00 Weeks of gestation of pregnancy not specified; R10.11 Right upper quadrant pain
CPT/HCPCS: 59025; 99211

== ENCOUNTER 2024-06-22 09:30 | Outpatient (CLI) | payer BC, MEDICAID, SELFPAY ==
[2024-06-22 09:38] VITALS: BP 138/73; PULSE 81
[2024-06-22 09:39] VITALS: BMI 36.2
[2024-06-22 09:53] VITALS: BP 121/82; PULSE 77
== END 2024-06-22 10:03 ==
LOC: OPOB 09:34 → OBGYN 09:34
PROVIDERS: PCP Nurse Practitioner Family; Visit Provider Obstetrics & Gynecology
DX: O36.5990 Maternal care for other known or suspected poor fetal growth, unspecified trimester, not applicable or unspecified (principal); Z3A.00 Weeks of gestation of pregnancy not specified
CPT/HCPCS: 59025

== ENCOUNTER 2024-06-25 08:15 | Outpatient (CLI) | payer BC, MEDICAID, SELFPAY ==
[2024-06-25 08:15] VITALS: BMI 38.0
[2024-06-25 08:38] VITALS: BP 132/78; PULSE 84
[2024-06-25 08:58] VITALS: BP 137/69; PULSE 77
[2024-06-25 09:35] VITALS: BP 137/84; PULSE 75
== END 2024-06-25 09:37 | disposition home or self-care (01) ==
LOC: OPOB 08:26 → OBGYN 08:29
PROVIDERS: PCP Nurse Practitioner Family; Visit Provider Obstetrics & Gynecology
DX: O36.5990 Maternal care for other known or suspected poor fetal growth, unspecified trimester, not applicable or unspecified (principal); Z3A.00 Weeks of gestation of pregnancy not specified
CPT/HCPCS: 59025

== ENCOUNTER 2024-06-29 08:20 | Outpatient (CLI) | payer BC, MEDICAID, SELFPAY ==
[2024-06-29 08:24] VITALS: BP 125/78; PULSE 87
[2024-06-29 08:28] VITALS: BMI 38.4
[2024-06-29 08:55] VITALS: BP 125/78; PULSE 87; RESP 16; O2SAT 99
== END 2024-06-29 08:55 ==
LOC: OPOB 08:21 → OBGYN 08:22
PROVIDERS: PCP Nurse Practitioner Family; Visit Provider Obstetrics & Gynecology
DX: O36.5990 Maternal care for other known or suspected poor fetal growth, unspecified trimester, not applicable or unspecified (principal); Z3A.00 Weeks of gestation of pregnancy not specified
CPT/HCPCS: 59025

== ENCOUNTER 2024-07-02 08:10 | Outpatient (CLI) | payer BC, MEDICAID, SELFPAY ==
[2024-07-02 08:25] VITALS: BP 131/83; PULSE 78
[2024-07-02 08:33] VITALS: BMI 38.5
[2024-07-02 08:35] VITALS: BP 140/84; PULSE 73
[2024-07-02 08:45] VITALS: BP 130/82; PULSE 71
[2024-07-02 08:50] VITALS: BP 130/82; PULSE 71; O2SAT 99
== END 2024-07-02 08:52 | disposition home or self-care (01) ==
LOC: OPOB 08:11 → OBGYN 08:12
PROVIDERS: PCP Nurse Practitioner Family; Visit Provider Obstetrics & Gynecology
DX: O36.5990 Maternal care for other known or suspected poor fetal growth, unspecified trimester, not applicable or unspecified (principal); Z3A.00 Weeks of gestation of pregnancy not specified
CPT/HCPCS: 59025

== ENCOUNTER 2024-07-05 10:23 | Outpatient (CLI) | payer BC, MEDICAID, SELFPAY ==
[2024-07-05 10:30] VITALS: BP 154/87; PULSE 68
[2024-07-05 10:42] VITALS: BMI 38.0
[2024-07-05 10:50] VITALS: BP 148/93; PULSE 73
--- NOTE | 2024-07-05 10:52 | PC.NURSE ---
THIS STERILE INSTRUMENT TECHNICIAN PUT IN ORDERS AND CARE PLAN IN AT THE WRONG TIME.
[2024-07-05 11:03] VITALS: BP 133/74; PULSE 78
== END 2024-07-05 11:10 | disposition home or self-care (01) ==
LOC: OPOB 10:24 → OBGYN 10:25
PROVIDERS: PCP Nurse Practitioner Family; Visit Provider Obstetrics & Gynecology
DX: O36.5990 Maternal care for other known or suspected poor fetal growth, unspecified trimester, not applicable or unspecified (principal); Z3A.00 Weeks of gestation of pregnancy not specified
CPT/HCPCS: 59025; 99211

== ENCOUNTER → 2024-09-14 12:30 | Outpatient (BNVA) | payer BC, MEDICAID, SELFPAY | PROVIDERS: PCP Nurse Practitioner Family; Visit Provider Emergency Medicine | DX: K80.50 Calculus of bile duct without cholangitis or cholecystitis without obstruction (principal) | CPT/HCPCS: 80053; 83690; 85025 ==

== ENCOUNTER 2024-10-03 08:19 | Outpatient (CLI) | payer BC, MEDICAID, SELFPAY ==
--- NOTE | 2024-10-03 08:30 | US_ITS ---
WS: [id number] RIGHT UPPER QUADRANT ULTRASOUND HISTORY: R10.11 - Right upper quadrant pain COMPARISON: None available. Liver: 13.9 cm in length. Normal size liver and echogenicity. No bile duct dilatation or mass. Portal Vein: Normal hepatopetal flow with monophasic waveform. Gallbladder: Normally distended gallbladder with no stones or wall thickening. CBD: 0.4 cm Pancreas: Completely obscured by bowel gas. Right kidney: 9.9 cm in length. Normal size and echogenicity. No hydronephrosis or mass. Aorta and IVC: Unremarkable abdominal aorta and IVC. No ascites. US/US gall bladder [id number] IMPRESSION: 1. Normal gallbladder. 2. No intrahepatic duct dilatation. 3. Pancreas not visualized.
== END 2024-10-03 08:20 | disposition home or self-care (01) ==
PROVIDERS: PCP Nurse Practitioner Family; Visit Provider Nurse Practitioner Family
DX: R10.11 Right upper quadrant pain (principal)
CPT/HCPCS: 76705

== ENCOUNTER 2024-10-26 13:14 | Emergency (ER) | payer BC, MEDICAID, SELFPAY ==
[2024-10-26] VITALS (8 sets, daily range): BP systolic 117–162; BP diastolic 70–103; PULSE 69–86; RESP 15–24; TEMP 36.7; O2SAT 72–98; BMI 37.8
--- NOTE | 2024-10-26 13:41 | ED_ITS ---
HPI - Abdominal Pain 2 General: Chief Complaint: Abdominal Pain Stated Complaint: abdominal pain Time Seen by Provider: 10/26/24 13:39 History of Present Illness: 29-year-old female presents emergency ro om with diffuse severe abdominal pain that she states began around 10 AM this morning she has persistent severe vomiting. The point she arrives here she is having dry heaving. She states it is worse when she takes a deep breath. She previously had a and tubal ligation. She denies any hematemesis or coffee-ground emesis no fever sweats or chills she has had some loose stools. No fever. She had previously been evaluated for gallbladder disease gallbladder ultrasound was negative she did not have any further workup after that. She is approximately approximately 3 and half months. Associated Symptoms: Reports diarrhea, nausea and vomiting; Denies chills, coffee ground emesis, constipation, dysuria, fever(s), hematochezia, hematemesis and melena Related Data Home Medications ?Medication ?Instructions ?Recorded ?Confirmed No Known Home Medications 10/26/2403/15 Allergies Allergy/AdvReac Type Severity Reaction Status Date / Time Penicillins Allergy oth Verified 10/26/24 13:23 Review of Systems 2 Const: Denies: fever(s) or chills Card: Denies: chest pain Resp: Denies: dyspnea GI: Reports: abdominal pain, nausea, vomiting and diarrhea; Denies: hematemesis, coffee ground emesis, constipation, hematochezia, melena or mucus in stool : Denies: dysuria, urinary frequency or urinary urgency Musc: Denies: neck pain or back pain Skin/Breast: Denies: rash PFSH ED 2 PFSH: Medical History History of gestational hypertension Surgical History History of x2 Family History Mother Heart disease Hypertension Denies family history of Colon cancer Ovarian cancer Prostate cancer Diabetes Hypercholesteremia Breast cancer Uterine cancer Thyroid disease Stroke Social History Smoking and tobacco/nicotine status: never used tobacco/nicotine Physical Exam 2 Const: GENERAL APPEARANCE: cooperative ORIENTATION/CONSCIOUSNESS: Yes awake, Yes oriented to person, Yes oriented to place and Yes oriented to time HENMT: COMMON NORMALS: normocephalic, atraumatic and hearing grossly normal bilaterally HEAD & SCALP: normocephalic and atraumatic Resp: COMMON NORMALS: normal respiratory effort, No retractions, No use of accessory muscles and clear to auscultation bilaterally AUSCULTATION: clear to auscultation bilaterally Cardio: COMMON NORMALS: regular rate, regular rhythm and No murmurs present (Cardio) RATE: regular rate RHYTHM: regular rhythm GI: AUSCULTATION: Yes normoactive bowel sounds PALPATION: Yes Tenderness to palpation present (GI) (Diffuse) and No Guarding due to palpation present (GI) Extremity: COMMON NORMALS: normal to inspection, capillary refill normal, no clubbing, cyanosis or edema, no calf tenderness and no pedal edema Neuro: SENSORIUM/ORIENTATION: Yes oriented to person, Yes oriented to place and Yes oriented to time Skin: COMMON NORMALS: no rashes or lesions noted GENERAL SKIN EXAM: no rashes or lesions noted Course 2 Vital Signs: Vital signs: Vital Signs Temperature 98.1 F 10/26/24 13:19 Pulse Rate 79 10/26/24 18:37 Respiratory Rate 18 10/26/24 18:32 Blood Pressure 128/87 10/26/24 18:37 Pulse Oximetry 98 10/26/24 18:37 Oxygen Delivery Me thod Room Air 10/26/24 18:32 MDM - Abdominal Pain Medical Decision Making Labs and imaging reviewed. Patient has severe pancreatitis with a markedly elevated lipase also has elevated T. bili and transaminases. Very concerning for ascending colon Ruslan there is no dilation of the intrahepatic ducts no sign of obstruction common bile duct measures normal. However given all these findings in total recommend that we transfer to GI services because of the risk for ascending cholangitis. Gallbladder itself does not appear to be acutely inflamed she does not appear to have any acute cholecystitis. Triglycerides not significantly elevated, patient denies use of alcohol. Transfer to [facility] for GI services. Medical Records I reviewed the patient's medical records. Lab Data I reviewed the patient's lab results. 10/26/24 13:53 10/26/24 13:53 Labs/Radiology: Radiology Impressions Abdomen/Pelvis CT 10/26/24 13:48 IMPRESSION: 1. Acute pancreatitis with diffuse peripancreatic edema and enlargement of the pancreas. No pseudocyst. No ischemia or necrosis or hemorrhage within the pancreas. 2. Mildly prominent distal common bile duct with wall enhancement. Correlate for ascending cholangitis. No intrahepatic duct dilatation. 3. Peripancreatic fluid extending along the perinephric fascia and also fluid within the pelvis. 4. No cholelithiasis identified by CT. Notified Omar Ohara DO at 10/26/2024 2:59 PM. Gallbladder Ultrasound 10/26/24 14:32 IMPRESSION: 1. Normal gallbladder. No evidence for acute cholecystitis or cholelithiasis. 2. No intrahepatic duct dilatation. Common bile duct is normal. 3. Pancreas is completely obscured by bowel gas. Laboratory Results WBC 12.57 10^3/uL (3.29-11.43) H 10/26/24 13:53 RBC 5.03 10^6/uL (3.85-5.65) 10/26/24 13:53 Hgb 14.50 g/dL (11.27-16.99) 10/26/24 13:53 Hct 43.4 % (36-47) 10/26/24 13:53 MCV 86.3 fl (85-98) 10/26/24 13:53 MCH 28.8 pg (27-33) 10/26/24 13:53 MCHC 33.4 g/dL (30-55) 10/26/24 13:53 RDW 13.6 % (12.1-15.1) 10/26/24 13:53 Plt Count 340 10^3/cmm (157-399) 10/26/24 13:53 MPV 10.6 fL (7.4-10.4) H 10/26/24 13:53 Neut % (Auto) 69.5 % 10/26/24 13:53 Lymph % (Auto) 21.2 % 10/26/24 13:53 [place] % (Auto) 5.8 % 10/26/24 13:53 Eos % (Auto) 2.7 % 10/26/24 13:53 Baso % (Auto) 0.5 % 10/26/24 13:53 Neut # (Auto) 8.73 10^3/uL (1.8-7.7) H 10/26/24 13:53 Lymph # (Auto) 2.7 10^3/uL (0.8-4.8) 10/26/24 13:53 [place] # (Auto) 0.7 10^3/uL (0.2-0.9) 10/26/24 13:53 Eos # (Auto) 0.3 10^3/uL (0.0-0.8) 10/26/24 13:53 Baso # (Auto) 0.1 10^3/uL (0.0-0.1) 10/26/24 13:53 Nucleated RBC % (auto) 0 % 10/26/24 13:53 Nucleated RBCs # 0.0 /100WBC 10/26/24 13:53 Sodium 139 mmol/L (136-145) 10/26/24 13:53 Potassium 3.3 mmol/L (3.5-5.1) L 10/26/24 13:53 Chloride 104 mmol/L (98-107) 10/26/24 13:53 Carbon Dioxide 20 mmol/L (22-29) L 10/26/24 13:53 Anion Gap 18.3 (5-19) 10/26/24 13:53 BUN 14 mg/dL (6-20) 10/26/24 13:53 Creatinine 0.6 mg/dL (0.5-0.9) 10/26/24 13:53 GFR Calculation 119.0 mL/min (90-130) 10/26/24 13:53 Glucose 139 mg/dL (65-115) H 10/26/24 13:53 Calculated Osmolality 291 mOsm/kg (285-295) 10/26/24 13:53 Lactic Acid 2.9 mmol/L (0.5-2.2) H 10/26/24 13:53 Lactic Acid (Sepsis) 0.8 mmol/L (0.5-2.2) 10/26/24 17:48 Calcium 9.7 mg/dL (8.5-10.5) 10/26/24 13:53 Total Bilirubin 3.3 mg/dL (0.15-1.2) H 10/26/24 13:53 AST 735 U/L (0-32) H 10/26/24 13:53 ALT 947 U/L (0-33) H 10/26/24 13:53 Alkaline Phosphatase 128 U/L (35-105) H 10/26/24 13:53 Total Protein 7.8 g/dL (6.6-8.7) 10/26/24 13:53 Albumin 4.2 g/dL (3.5-5.2) 10/26/24 13:53 Globulin 3.6 g/dL (1.3-4.6) 10/26/24 13:53 Triglycerides 151 mg/dL (0-150) H 10/26/24 13:53 Lipase > 34845 U/L (13-60) H 10/26/24 13:53 HCG, Qual Negative (Negative) 10/26/24 13:53 Urine Color Cancelled 10/26/24 14:00 Urine Color Dark yellow (Yellow) A 10/26/24 14:00 Urine Appearance Cancelled 10/26/24 14:00 Urine Appearance Clear (CLEAR) 10/26/24 14:00 Urine pH 5.0 (5-7) 10/26/24 14:00 Urine pH Cancelled 10/26/24 14:00 Ur Specific [place] 1.007 (1.005-1.030) 10/26/24 14:00 Ur Specific [place] Cancelled 10/26/24 14:00 Urine Protein Cancelled 10/26/24 14:00 Urine Protein Negative (Negative) 10/26/24 14:00 Urine Glucose (UA) Cancelled 10/26/24 14:00 Urine Glucose (UA) Negative (Normal) 10/26/24 14:00 Urine Ketones Cancelled 10/26/24 14:00 Urine Ketones Negative (Negative) 10/26/24 14:00 Urine Blood Cancelled 10/26/24 14:00 Urine Blood Negative (Negative) 10/26/24 14:00 Urine Nitrate Cancelled 10/26/24 14:00 Urine Nitrate Negative (Negative) 10/26/24 14:00 Urine Bilirubin Cancelled 10/26/24 14:00 Urine Bilirubin Negative (Negative) 10/26/24 14:00 Prot Sulfosalicylic Acd Cancelled 10/26/24 14:00 Urine Urobilinogen 0.2 mg/dL (Negative) 10/26/24 14:00 Urine Urobilinogen Cancelled 10/26/24 14:00 Ur Leukocyte Esterase Cancelled 10/26/24 14:00 Ur Leukocyte Esterase Negative (Negative) 10/26/24 14:00 Urine RBC Cancelled 10/26/24 14:00 Urine RBC None /hpf (0-2) 10/26/24 14:00 Urine WBC Cancelled 10/26/24 14:00 Urine WBC None /hpf (0-5) 10/26/24 14:00 Ur Squamous Epith Cells Cancelled 10/26/24 14:00 Ur Squamous Epith Cells None /hpf (0-5) 10/26/24 14:00 Ur Transition Epith Cell Cancelled 10/26/24 14:00 Ur Renal Epithelial Cell Cancelled 10/26/24 14:00 Calcium Oxalate Crystal Cancelled 10/26/24 14:00 Uric Acid Crystals Cancelled 10/26/24 14:00 Triple Phos Crystals Cancelled 10/26/24 14:00 Other Crystals Cancelled 10/26/24 14:00 Amorphous Sediment Cancelled 10/26/24 14:00 Amorphous Sediment Not Reportable 10/26/24 14:00 Urine Bacteria Cancelled 10/26/24 14:00 Urine Bacteria None /hpf (NONE) 10/26/24 14:00 Hyaline Casts Cancelled 10/26/24 14:00 Hyaline Casts None /lpf 10/26/24 14:00 Fine Granular Casts Cancelled 10/26/24 14:00 Coarse Granular Casts Cancelled 10/26/24 14:00 RBC Casts Cancelled 10/26/24 14:00 Other Casts Cancelled 10/26/24 14:00 Urine Mucus Cancelled 10/26/24 14:00 Urine Trichomonas Cancelled 10/26/24 14:00 Urine Yeast Cancelled 10/26/24 14:00 Urine Sperm Cancelled 10/26/24 14:00 Ur Oval Fat Bodies Cancelled 10/26/24 14:00 All radiology interpretation(s) finalized by discharge Discharge Plan Discharge Patient Disposition: Xfer Short-Term Hosp Clinical Impression: Ascending cholangitis Condition: Stable Referrals: Nathalia Long FNP-C [Primary Care Provider] - Print Language: Polish Coding Level of Care Code ED Object Oriented Programmer for Erin Farmer
--- NOTE | 2024-10-26 13:48 | CT_ITS ---
WS: [id number] CT ABDOMEN AND PELVIS WITH CONTRAST HISTORY: abd pain TECHNIQUE: Imaging performed of the abdomen and pelvis with IV contrast. Single phase imaging of the abdomen. Coronal and sagittal reformats are submitted. All CT scans at [facility] use at least one of these dose optimization techniques: automated exposure control; mA and/or kV adjustment per patient size (includes targeted exams where dose is matched to clinical indication); or iterative reconstruction. IV CONTRAST: Omnipaque 350; 100 mL IV. Oral contrast: No DLP: 914.32 mGy.cm COMPARISON: Gallbladder ultrasound 10/27/2019 10/03/2024 Lower thorax: Lung bases are clear. Heart is normal size. No hiatal hernia. Liver/biliary system: Normal size with no intrahepatic dilatation. Gallbladder: Normal. No gallstones or wall thickening. No pericholecystic fluid. Common bile duct is mildly prominent at the pancreatic head extending into the ampulla of Vater. Mild enhancement of the common bile duct wall but no dilatation. No intrahepatic duct dilatation. Pancreas: Enlarged pancreas with diffuse peripancreatic edema. No pseudocyst is identified. There is free fluid extending along the perinephric fascia. Pancreatic duct is not dilated. Common bile duct at the pancreatic head is not dilated. There is a tiny cystic area measuring 8 mm near the ampulla of Vater. Pseudocyst or related to cholangitis. Spleen: Normal size spleen. No mass or infarct. Adrenal glands: Normal. Right kidney: Normal. Left kidney: Normal. Aorta: Normal. Lymphadenopathy: None. Free fluid: Small amount of free fluid in the pelvis. There is free fluid along the perinephric fascia. GI tract: Nondistended stomach. Mild inflammation involving the duodenal C-loop at the site of the pancreatitis. Abdominal wall: Unremarkable abdominal wall. No hernia. Pelvis: Small amount of free fluid. Uterus is normal size and midline. Collapsing corpus luteal cyst RIGHT ovary. Bones: Unremarkable. CT/CT abdomen pelvis w con* [id number] IMPRESSION: 1. Acute pancreatitis with diffuse peripancreatic edema and enlargement of the pancreas. No pseudocyst. No ischemia or necrosis or hemorrhage within the panc reas. 2. Mildly prominent distal common bile duct with wall enhancement. Correlate f or ascending cholangitis. No intrahepatic duct dilatation. 3. Peripancreatic fluid extending along the perinephric fascia and also fluid within the pelvis. 4. No cholelithiasis identified by CT. Notified Omar Ohara DO at 10/26/2024 2:59 PM.
[2024-10-26] MEDS: LORazepam 2 mg/mL INJ 1 mL 1 MG IVP (13:53)
[2024-10-26] MEDS: haloperidol inj 5 mg/mL INJ 1 mL 2.5 MG IVP (13:53)
[2024-10-26 14:02] LABS: Basophils # 0.1 10^3/uL (0.0-0.1); Basophils % 0.5 %; Eosinophils # 0.3 10^3/uL (0.0-0.8); Eosinophils % 2.7 %; Hematocrit 43.4 % (36-47); Lymphocytes # 2.7 10^3/uL (0.8-4.8); Lymphocytes % 21.2 %; Mean Corpuscular HGB Conc 33.4 g/dL (30-55); Mean Corpuscular Hemoglobin 28.8 pg (27-33); Mean Corpuscular Volume 86.3 fl (85-98); Mean Platelet Volume 10.6 fL (7.4-10.4); Monocytes # 0.7 10^3/uL (0.2-0.9); Monocytes % 5.8 %; Neutrophils # 8.73 10^3/uL (1.8-7.7); Neutrophils % 69.5 %; Nucleated Red Blood Cells % 0 %; Platelet Count 340 10^3/cmm (157-399); Red Blood Count 5.03 10^6/uL (3.85-5.65); Red Cell Distribution Width 13.6 % (12.1-15.1); White Blood Count 12.57 10^3/uL (3.29-11.43)
[2024-10-26 14:13] LABS: HCG, Serum Qual Negative (Negative)
[2024-10-26 14:17] LABS: Albumin Level 4.2 g/dL (3.5-5.2); Alkaline Phosphatase 128 U/L (35-105); Anion Gap 18.3 (5-19); Blood Urea Nitrogen 14 mg/dL (6-20); Calcium 9.7 mg/dL (8.5-10.5); Carbon Dioxide 20 mmol/L (22-29); Chloride 104 mmol/L (98-107); Creatinine Clr Calc Pharmacy 143.1685; Globulin 3.6 g/dL (1.3-4.6); Glucose 139 mg/dL (65-115); Lactic Sepsis W/Reflex 2.9 mmol/L (0.5-2.2); Osmolality Calculated 291 mOsm/kg (285-295); Potassium 3.3 mmol/L (3.5-5.1); Sodium 139 mmol/L (136-145); Total Bilirubin 3.3 mg/dL (0.15-1.2); Total Protein 7.8 g/dL (6.6-8.7)
[2024-10-26] MEDS: iohexol 350 mg/mL 500 mL Btl (per mL) IV (14:22)
[2024-10-26 14:25] LABS: Bilirubin Urine Negative (Negative); Blood Urine Negative (Negative); Glucose Urine UA Negative (Normal); Ketones Urine Negative (Negative); Leukocyte Esterase Urine Negative (Negative); Nitrate Urine Negative (Negative); Protein Urine Negative (Negative); Specific Gravity, Urine 1.007 (1.005-1.030); Urine Appearance Clear (CLEAR); Urine Color Dark Yellow (Yellow); Urobilinogen Urine 0.2 mg/dL (Negative)
[2024-10-26 14:29] LABS: Alanine Aminotransferase 947 U/L (0-33)
[2024-10-26 14:30] LABS: Aspartate Amino Transferase 735 U/L (0-32)
--- NOTE | 2024-10-26 14:32 | US_ITS ---
WS: [id number] RIGHT UPPER QUADRANT ULTRASOUND HISTORY: abd pain COMPARISON: Gallbladder ultrasound 10/03/2024, CT 10/26/2024 Liver: 17.2 cm in length. Liver is top normal size. No intrahepatic duct dilatation or mass. Normal portal vein. Portal Vein: Normal hepatopetal flow with monophasic waveform. Gallbladder: Normally distended gallbladder with no stones or wall thickening. CBD: 0.4 cm Pancreas: Pancreas is completely obscured by bowel gas. Right kidney: 9.6 cm in length. Normal size and echogenicity. No hydronephrosis or mass. Aorta and IVC: Not visualized. No ascites. US/US gall bladder [id number] IMPRESSION: 1. Normal gallbladder. No evidence for acute cholecystitis or cholelithiasis. 2. No intrahepatic duct dilatation. Common bile duct is normal. 3. Pancreas is completely obscured by bowel gas.
[2024-10-26 14:35] LABS: Lipase > 13605 U/L (13-60)
[2024-10-26] MEDS: morphine 4 mg/mL SDV 1 mL IVP (14:49)
--- NOTE | 2024-10-26 14:49 | PC.NURSE ---
pt antibiotics delayed d/t needing blood culture x2 collection
[2024-10-26 14:58] LABS: UA Manual Slide Review YES; UA Slide Review UA Slide Review Perf
[2024-10-26 15:02] LABS: Triglycerides 151 mg/dL (0-150)
[2024-10-26] MEDS: ciprofloxacin 400 MG/200 ML PREMIX 200 MG IV (15:11)
[2024-10-26] MEDS: HYDROMORPHONE HCL 0.5 MG/0.5 ML INJ IVP ×2 (15:20→18:37)
[2024-10-26 15:44] LABS: Reflex Lactate Order REFLEX LACTIC ORDERD
[2024-10-26] MEDS: metroNIDAZOLE IV 500 MG/100 ML PREMIX 100 MG IV (15:53)
--- NOTE | 2024-10-26 16:27 | PC.NURSE ---
report called to [facility] to [facility]; ER to ER. Accepting physician, Dr. Carolina; no further questions at end of report. report #
--- NOTE | 2024-10-26 16:34 | PC.NURSE ---
pt provided with mouth swab per Dr. Ohara; remains NPO. pt signed transfer form, updated on status of transfer
[2024-10-26 18:23] LABS: Lactic Acid level (Lactate) 0.8 mmol/L (0.5-2.2)
--- NOTE | 2024-10-26 18:30 | PC.NURSE ---
Dilaudid delayed d/t being unverified x30 min. called pharmacy
== END 2024-10-26 18:41 | disposition short-term general hospital (02) ==
PROVIDERS: Emergency Medicine; Emergency Provider Family Medicine; PCP Nurse Practitioner Family
DX: K83.09 Other cholangitis (principal)
CPT/HCPCS: 36415; 74177; 76705; 80053; 81001; 83605; 83690; 84478; 84703; 85025; 87040; 96365; 96366; 96367; 96375; 96376; 99285; J0744; J1171; J1630; J2060; J2270; J3490

== ENCOUNTER 2025-02-08 13:44 | Emergency (ER) | payer OTHER, SELFPAY ==
[2025-02-08 13:48] VITALS: BP 152/101; PULSE 94; RESP 16; TEMP 36.8; O2SAT 98
--- NOTE | 2025-02-08 14:00 | ED_ITS ---
HPI - Animal Bite General: Chief Complaint: Animal Bite Stated Complaint: dog bite Time Seen by Provider: 02/08/25 13:45 Source: patient Mode of arrival: ambulatory Limitations: no limitations History of Present Illness: Patient is a nice 29-year-old female presents to ED today for evaluation of dog bite to left upper arm that she sustained just prior to arrival. Patient states she works at the [employer] and was delivering food to a vehicle and when the maintenance services dispatcher rolled down the vehicle window, the dog bit her to her left arm. Store Mgr of the dog/drop hammer pile driver operator of the vehicle then fleeted the scene. [place] police were called and are investigating. Unknown at this time the maintenance services dispatcher of the animal or whether the dog was up to date on rabies shots. Patient's last tetanus around 7 years or so ago. complaint: animal bite Animal: dog Description of animal: unknown animal Mechanism: bite Location - Extremities: Left: arm Associated symptoms: Reports no associated symptoms; Deny fever(s) Related Data Previous Rx's ?Medication ?Instructions ?Recorded cefuroxime axetil 500 mg tablet 500 mg PO BID 7 days # 14 tabs 02/08/25 metronidazole 500 mg tablet 500 mg PO BID 7 days #14 t abs 02/08/25 Allergies Allergy/AdvReac Type Severity Reaction Status Date / Time Penicillins Allergy oth Verified 10/26/24 13:23 Review of Systems Const: Denies: fever(s) Musc: Reports: extremity pain; Denies: extremity swelling, joint pain or joint swelling Skin/Breast: Reports: other (dog bite L upper arm) Neuro: Denies: numbness in extremities, weakness in extremities or sensory changes [facility] ED PFSH: Medical History History of gestational hypertension Surgical History History of x2 Family History Mother Heart disease Hypertension Denies family history of Colon cancer Ovarian cancer Prostate cancer Diabetes Hypercholesteremia Breast cancer Uterine cancer Thyroid disease Stroke Social History Smoking and tobacco/nicotine status: never used tobacco/nicotine Physical Exam Const: COMMON NORMALS: no acute distress, no limitations, healthy appearing, alert and well nourished Extremity: GENERAL: Yes normal exam except as noted LEFT UPPER EXTREMITY: Yes upper arm (dog bite to dorsal surface L upper arm; nothing repairable) Neuro: COMMON NORMALS: moves all extremities, no focal motor deficits and no sensory deficits noted SENSORIUM/ORIENTATION: Yes alert Skin: NARRATIVE SKIN EXAM: see above Course Vital Signs: Vital signs: Vital Signs Temperature 98.3 F 02/08/25 13:48 Pulse Rate 94 02/08/25 13:48 Respiratory Rate 16 02/08/25 13:48 Blood Pressure 152/101 02/08/25 13:48 Pulse Oximetry 98 02/08/25 13:48 Oxygen Delivery Me thod Room Air 02/08/25 13:48 MDM - Animal Bite Medical Decision Making Will update patient's tetanus. Will place her on prophylactic antibiotics. She does have an allergy to penicillin so we will place her on Cefuroxime and Flagyl for appropriate microbial coverage. Will start her on rabies PEP. This can be discontinued if police find the animal is up-to-date on rabies immunizations. Wound care/infection precautions discussed. Differential Diagnosis Likely dog bite Medical Records I reviewed the patient's medical records. No radiology studies performed this visit Discharge Plan Discharge Patient Disposition: Home Clinical Impression: Dog bite of left upper arm Qualifiers: Encounter type: initial encounter Qualified Code(s): S41.152A - Open bite of left upper arm, initial encounter Condition: Stable Prescriptions: New cefuroxime axetil 500 mg tablet 500 mg PO BID 7 Days Qty: 14 0RF metronidazole 500 mg tablet 500 mg PO BID 7 Days Qty: 14 0RF Discharge Orders: Discharge ED (Routine); Ordered 02/08/25 Ordered By: Valentina Palacios Referrals: Nathalia Long FNP-C [Primary Care Provider, Family Practice] Patient Instructions: Rabies Vaccine (By injection), Rabies Immune Globulin (By injection), Animal Bite (ED) Activity Restrictions/Additional Instructions: As we discussed, keep wound clean with warm soap and water multiple times a day. Monitor for signs of infection such as redness, swelling, purulent or odorous drainage, worsening pain, fevers, or any other concerns you may have. Please seek medical reevaluation if these occur. Your tetanus has been updated today. You were started on the rabies post exposure you were started on the rabies postexposure prophylaxis series. If you find that the dog is up-to-date on rabies immunizations, you can discontinue the remainder of the series- otherwise you have been given a schedule for the remainder of shots. Please fill your antibiotics and start them immediately. Print Language: Amharic Coding Level of Care Code ED Land Reclamation Specialist for Erin Farmer
[2025-02-08] MEDS: tetanus-dipt-pertussis 0.5 mL SDV IM (14:12)
[2025-02-08] MEDS: rabies vaccine 2.5 unit SDV IM (14:15)
[2025-02-08] MEDS: rabies IG 300 unit/mL SDV 1 mL 2010 UNIT IM (14:19)
[2025-02-08 14:40] VITALS: BP 144/96; PULSE 88; O2SAT 97
== END 2025-02-08 14:43 | disposition home or self-care (01) ==
PROVIDERS: Emergency Provider Physician Assistant; PCP Nurse Practitioner Family
DX: S41.152A Open bite of left upper arm, initial encounter (principal); W54.0XXA Bitten by dog, initial encounter; Z20.3 Contact with and (suspected) exposure to rabies; Z29.14 Encounter for prophylactic rabies immune globulin
CPT/HCPCS: 90375; 90471; 90675; 90715; 99283

== ENCOUNTER 2025-02-11 16:08 | Oncology outpatient (recurring) (ONCR) | payer SELFPAY ==
[2025-02-11] MEDS: rabies vaccine 2.5 unit SDV IM (16:12)
== END 2025-02-18 23:59 | disposition home or self-care (01) ==
PROVIDERS: PCP Nurse Practitioner Family; Visit Provider Internal Medicine
DX: Z53.9 Procedure and treatment not carried out, unspecified reason; Z23 Encounter for immunization; Z20.3 Contact with and (suspected) exposure to rabies; S41.152A Open bite of left upper arm, initial encounter; W54.0XXA Bitten by dog, initial encounter
CPT/HCPCS: 90471; 90675

== ENCOUNTER 2025-02-27 08:15 | Oncology outpatient (recurring) (ONCR) | payer OTHER, SELFPAY ==
[2025-02-20 12:40] VITALS: BP 125/76; PULSE 74; RESP 17; TEMP 36.8; O2SAT 96
[2025-02-20] MEDS: rabies vaccine 2.5 unit SDV IM (12:42)
== END 2025-03-21 23:59 | disposition home or self-care (01) ==
PROVIDERS: PCP Nurse Practitioner Family; Referring Provider Physician Assistant; Visit Provider Internal Medicine
DX: Z53.9 Procedure and treatment not carried out, unspecified reason (principal)
CPT/HCPCS: 90471; 90675